=== PATIENT | female | born 1990 | race African-American/Black ===

== ENCOUNTER 2020-12-10 13:53 | Emergency (ER) | payer OTHER ==
[~2020-12-10] VITALS: Ht 157.5 cm; Wt 81.8 kg
[2020-12-10] MEDS ORDERED: IV NORMAL SALINE 1000ML BAG 1,000 ML IV ONE (14:30)
[2020-12-10 14:39] LABS: BILIRUBIN,URINE NEGATIVE (NEG); CLARITY,URINE CLEAR; COLOR,URINE YELLOW; NITRITE,URINE NEGATIVE (NEG); PH,URINE 6.5 (<5.0-8.0); PROTEIN,URINE NEGATIVE (NEG-TRACE); UROBILINOGEN,URINE 0.2 mg/dL (0.2 mg/dL)
[2020-12-10 15:02] LABS: BACTERIA,URINE FEW /HPF (0-FEW)
--- NOTE | 2020-12-10 15:02 | PHYS DOC ---
Past Medical History Past Medical History: No Pertinent History, Asthma Past Surgical History: Smoking Status: Never Smoker Alcohol Use: None Drug Use: None General Adult EDM: Chief Complaint: ABDOMINAL PAIN IN HPI: HPI: Patient is a 30 year old female who presented to ER for evaluation miscarry. Patient has been three times, had one live child. Her last menstrual period was on October 10, 2020. On November 10, 2020, patient has some pelvic pain and vaginal bleeding, patient went to [facility] ER, she was diagnosed with , but they did not see heart tone, suspected of demise. Patient was then evaluated at [facility], was seen in the [facility] diagnosed with demise on November 27, 2020. Patient was given a dose of MIFEPRISTONE IN THE CLINIC AND then she was discharged home with a prescription of this medication to take at home so she can have a complete miscarry at home. Patient says she has been passing blood clot but she was not sure if she passed the fetus. She came in today, wanted to have a pelvic ultrasound to make sure she had no retention of productive conception. Patient denies any fever, no pelvic pain, no vaginal bleeding. Patient denies any abdominal pain. Review of Systems: Review of Systems: Constitutional: Denies fever or chills. [] Eyes: Denies change in visual acuity. [] HENT: Denies nasal congestion or sore throat. [] Respiratory: Denies cough or shortness of breath. [] Cardiovascular: Denies chest pain or edema. [] GI: Denies abdominal pain, nausea, vomiting, bloody stools or diarrhea. [] : Denies dysuria. [] Musculoskeletal: Denies back pain or joint pain. [] Integument: Denies rash. [] Neurologic: Denies headache, focal weakness or sensory changes. [] Endocrine: Denies polyuria or polydipsia. [] Lymphatic: Denies swollen glands. [] Psychiatric: Denies depression or anxiety. [] Heart Score: Risk Factors: Risk Factors: DM, Current or recent (<one month) smoker, HTN, HLP, family history of CAD, obesity. Risk Scores: Score 0 - 3: 2.5% MACE over next 6 weeks - Discharge Home Score 4 - 6: 20.3% MACE over next 6 weeks - Admit for Clinical Observation Score 7 - 10: 72.7% MACE over next 6 weeks - Early Invasive Strategies Current Medications: Current Medications Medications (Trade) Dose Ordered Sig/Rubio Start Time Stop Time Status Last Admin Dose Admin Sodium Chloride 1,000 ml @ 1,000 mls/hr 1X ONCE 12/10/20 14:30 12/10/20 15:29 Allergies: Allergies: Allergies Coded Allergies Type Severity Reaction Last Updated Verified No Known Drug Allergies 08/03/15 No Physical Exam: PE: Constitutional: Well developed, well nourished, no acute distress, non-toxic appearance. [] HENT: Normocephalic, atraumatic, bilateral external ears normal, oropharynx moist, no oral exudates, nose normal. [] Eyes: PERRLA, EOMI, conjunctiva normal, no discharge. [] Neck: Normal range of motion, no tenderness, supple, no stridor. [] Cardiovascular:Heart rate regular rhythm, no murmur [] Lungs & Thorax: Bilateral breath sounds clear to auscultation [] Abdomen: Bowel sounds normal, soft, no tenderness, no masses, no pulsatile masses. [] Skin: Warm, dry, no erythema, no rash. [] Back: No tenderness, no CVA tenderness. [] Extremities: No tenderness, no cyanosis, no clubbing, ROM intact, no edema. [] Neurologic: Alert and oriented X 3, normal motor function, normal sensory function, no focal deficits noted. [] Psychologic: Affect normal, judgement normal, mood normal. [] Current Patient Data: Labs: Laboratory Tests Test 12/10/20 14:07 POC Urine HCG, Qualitative Hcg negative (Negative) Vital Signs: Vital Signs Date Time Temp Pulse Resp B/P (MAP) Pulse Ox O2 Delivery O2 Flow Rate FiO2 12/10/20 14:13 98.1 67 16 144/92 (109) 100 Room Air 98.1 EKG: EKG: [] Radiology/Procedures: Radiology/Procedures: [][facility] [address] [place], [place] [id number] IMAGING REPORT Signed PATIENT: ROBERT COLIN ACCOUNT: [id number] : 1990 LOCATION: ER AGE: 30 SEX: F EXAM STATUS: REG ER ORD. PHYSICIAN: BRIANNA SALGUERO DO REASON: about 3 months , DEMISE ON 11/10/20, TOOK MIFEPRISTONE PROCEDURE: PELVIS COMPLETE Ultrasound pelvis complete HISTORY: Miscarriage on November 10, 2020 of a 12 week fetus presents with pelvic pain Sonographic examination of the pelvis and perform by transabdominal technique multiple static images were obtained. The uterus measures 8.4 x 6.7 x 6.8 cm. The endometrium is homogeneous and measures 7 mm in thickness. The ovaries appear normal with normal blood flow. The right ovary measures 2.9 x 1.6 x 1.6 cm. The left ovary measures 3.6 x 1.9 x 2.6 cm. There is a small amount of free fluid in the cul-de-sac. Impression: Mild free fluid in the posterior cul-de-sac. No significant findings. Electronically signed by: Alicia Calero III, MD (12/10/2020 3:22 PM) [facility] DICTATED and SIGNED BY: ALICIA CALERO III, MD DATE: 12/10/20 [id number] Course & Med Decision Making: Course & Med Decision Making Pertinent Labs and Imaging studies reviewed. (See chart for details) Patient is a 30-year-old female who had a miscarriage in November 10, 2020. Pelvic ultrasound today did not show any evidence of retention of products of conception. Patient is is no acute distress, she declined lab work done. No f urther work-up needed at this time, she had a complete at home. Patti Disclaimer: Patti Disclaimer: This electronic medical record was generated, in whole or in part, using a voice recognition dictation system. Departure Departure Impression: Primary Impression: Complete Disposition: DC HOME SELF CARE/HOMELESS Condition: STABLE Referrals: NO PCP (PCP) PLEASE FOLLOW UP WITH YOUR [facility] DOCTOR THIS WEEK BRIANNA SALGUERO DO Dec 10, 2020 15:02
--- NOTE | 2020-12-10 15:25 | RAD ---
Ultrasound pelvis complete HISTORY: Miscarriage on November 10, 2020 of a 12 week fetus presents with pelvic pain Sonographic examination of the pelvis and perform by transabdominal technique multiple static images were obtained. The uterus measures 8.4 x 6.7 x 6.8 cm. The endometrium is homogeneous and measures 7 mm in thickness . The ovaries appear normal with normal blood flow. The right ovary measures 2.9 x 1.6 x 1.6 cm. The left ovary measures 3.6 x 1.9 x 2.6 cm. There is a small amount of free fluid in the cul-de-sac. Impression: Mild free fluid in the posterior cul-de-sac. No significant findings. Electronically signed by: Bhaskar Calero III, MD (12/10/2020 3:22 PM) [facility]
[2020-12-10 15:40] VITALS: BP 136/86
== END 2020-12-10 15:40 | disposition home or self-care (01) ==
LOC: ER 13:53
DX: O03.9 Complete or unspecified spontaneous abortion without complication (principal); R10.2 Pelvic and perineal pain; J45.909 Unspecified asthma, uncomplicated; Z98.890 Other specified postprocedural states; Z3A.12 12 weeks gestation of pregnancy
CPT/HCPCS: 76856; 81001; 81025; 87086; 99284

== ENCOUNTER 2021-02-12 15:50 | Emergency (ER) | payer OTHER ==
[~2021-02-12] VITALS: Ht 157.5 cm; Wt 80.0 kg
[2021-02-12 17:13] VITALS: BP 119/66
[2021-02-12] MEDS ORDERED: VENTOLIN HFA18 GM INH (17:47)
--- NOTE | 2021-02-12 17:48 | ED.ADGEN ---
Past Medical History Past Medical History: No Pertinent History, Asthma Additional Past Medical Histor: Seasonal allergies Past Surgical History: Smoking Status: Never Smoker Alcohol Use: None Drug Use: None General Adult EDM: Chief Complaint: ASTHMA HPI: HPI: Patient is a 30 year old AA female who presents emergency department with request for refill of her albuterol inhaler. Patient reports that she used the last dose of her inhaler earlier today. She currently denies any shortness of breath, or wheezing. Patient denies any fever, body aches, chest pain, wheezing, shortness of breath, ear pain, head pain, abdominal pain, nausea, vomiting, diarrhea, dysuria, or rash. She states that she has had some runny nose with postnasal drainage and nonproductive cough that she relates to her seasonal allergies. She currently denies any pain or complaints. Review of Systems: Review of Systems: Complete ROS is negative unless otherwise noted in HPI. Allergies: Allergies: Allergies Coded Allergies Type Severity Reaction Last Updated Verified No Known Drug Allergies 08/03/15 No Physical Exam: PE: See Above Constitutional: Well developed, well nourished, no acute distress, non-toxic appearance. [] HENT: Normocephalic, atraumatic, bilateral external ears normal, nose congested bilateral Eyes: PERRLA, EOMI, conjunctiva normal, no discharge. [] Neck: Normal range of motion, no stridor. [] Cardiovascular:Heart rate regular rhythm Lungs & Thorax: Respirations even and unlabored, no retractions, no respiratory distress, no wheezing Skin: Warm, dry, no erythema, no rash. [] Extremities: No cyanosis, ROM intact, no edema. [] Neurologic: Alert and oriented X 3, no focal deficits noted. [] Psychologic: Affect normal, judgement normal, mood normal. [] Current Patient Data: Vital Signs: Vital Signs Date Time Temp Pulse Resp B/P (MAP) Pulse Ox O2 Delivery O2 Flow Rate FiO2 02/12/21 17:13 98.1 94 119/66 (83) 100 98.1 02/12/21 16:22 20 Room Air EKG: EKG: [] Heart Score: C/O Chest Pain: No Risk Scores: Score 0 - 3: 2.5% MACE over next 6 weeks - Discharge Home Score 4 - 6: 20.3% MACE over next 6 weeks - Admit for Clinical Observation Score 7 - 10: 72.7% MACE over next 6 weeks - Early Invasive Strategies Radiology/Procedures: Radiology/Procedures: [] Course & Med Decision Making: Course & Med Decision Making Pertinent Labs and Imaging studies reviewed. (See chart for details) [] Patti Disclaimer: Patti Disclaimer: This electronic medical record was generated, in whole or in part, using a voice recognition dictation system. Departure Departure Impression: Primary Impression: Medication refill Disposition: 01 DC HOME SELF CARE/HOMELESS Condition: STABLE Referrals: NO PCP (PCP) Patient Instructions: Medication Refill, Emergency Department Additional Instructions: Fill the prescription(s) and use as directed. Recommend that you take 10 mg of generic Zyrtec (cetirizine) or Claritin at bedtime and use over the counter Flonase (fluticasone) nasal spray 2 sprays each nostril once daily in the [facility]. You may take Tylenol or ibuprofen as needed for pain/fever. Increase clear fluids. Avoid triggers such as smoke, fragrance, dust, and pollen. Follow- up with your primary care doctor if symptoms persist, return to the ER if symptoms worsen. Scripts Albuterol Sulfate (VENTOLIN HFA INHALER) 18 Gm Hfa.aer.ad 2 PUFF INH Q4HRS PRN for WHEEZING for 30 Days, #1 INHALER 1 Refill Prov: NEELA FAY APRN 02/12/21 NEELA FAY APRN Feb 12, 2021 17:48
== END 2021-02-12 17:58 | disposition home or self-care (01) ==
LOC: ER 15:50
DX: R09.89 Other specified symptoms and signs involving the circulatory and respiratory systems (principal); R05 Cough; J45.909 Unspecified asthma, uncomplicated; Z98.890 Other specified postprocedural states
CPT/HCPCS: 99281; 99283

== ENCOUNTER 2021-06-28 23:20 | Emergency (ER) | payer OTHER ==
[~2021-06-28] VITALS: Ht 157.5 cm; Wt 77.3 kg
[~2021-06-28 23:20] MED LIST: VENTOLIN HFA18 GM INH
[2021-06-29] MEDS ORDERED: ACETAMINOPHEN 325 MG TABLET. PO ONE
[2021-06-29] MEDS ORDERED: ACET325T9 PO (00:17)
[2021-06-29] MEDS ORDERED: ALBU2.5V8 IH (00:17)
--- NOTE | 2021-06-29 00:21 | PHYS DOC ---
Past Medical History Past Medical History: No Pertinent History, Asthma Additional Past Medical Histor: Seasonal allergies, pre-eclampsia Past Surgical History: Smoking Status: Current Some Day Smoker Alcohol Use: None Drug Use: None General Adult EDM: Chief Complaint: MULTIPLE COMPLAINTS HPI: HPI: Patient is a 31 year old male who states she is 3 to 4 weeks presents with a chief complaint of cough. Patient states symptoms been ongoing for 3 days. She has a cough with some sputum production. Patient states her sinus and chest feels congested. Patient states her entire family and kids have all tested positive for Covid. Patient household is not COVID vaccinated. On arrival patient is in no acute respiratory distress. Her oxygen saturation is 100% on room air. Patient is febrile. She denies any pelvic discomfort she denies any vaginal bleeding or discharge. Review of Systems: Review of Systems: Constitutional: Denies fever or chills. [] Eyes: Denies change in visual acuity. [] HENT: Denies nasal congestion or sore throat. [] Respiratory: Positive cough Positive shortness of breath. [] Cardiovascular: Denies chest pain or edema. [] GI: Denies abdominal pain, nausea, vomiting, bloody stools or diarrhea. [] : Denies dysuria. [] Musculoskeletal: Denies back pain or joint pain. [] Integument: Denies rash. [] Neurologic: Denies headache, focal weakness or sensory changes. [] Endocrine: Denies polyuria or polydipsia. [] Lymphatic: Denies swollen glands. [] Psychiatric: Denies depression or anxiety. [] Heart Score: C/O Chest Pain: N/A Risk Factors: Risk Factors: DM, Current or recent (<one month) smoker, HTN, HLP, family history of CAD, obesity. Risk Scores: Score 0 - 3: 2.5% MACE over next 6 weeks - Discharge Home Score 4 - 6: 20.3% MACE over next 6 weeks - Admit for Clinical Observation Score 7 - 10: 72.7% MACE over next 6 weeks - Early Invasive Strategies Current Medications: Current Medications Medications (Trade) Dose Ordered Sig/Rubio Start Time Stop Time Status Last Admin Dose Admin Acetaminophen (Tylenol) 650 mg 1X ONCE 06/29/21 00:00 06/29/21 00:01 DC 06/28/21 23:54 650 MG Allergies: Allergies: Allergies Coded Allergies Type Severity Reaction Last Updated Verified No Known Drug Allergies 08/03/15 No Physical Exam: PE: Constitutional: Well developed, well nourished, no acute distress, non-toxic appearance. [] HENT: Normocephalic, atraumatic, bilateral external ears normal, oropharynx moist, no oral exudates, nose normal. [] Eyes: PERRLA, EOMI, conjunctiva normal, no discharge. [] Neck: Normal range of motion, no tenderness, supple, no stridor. [] Cardiovascular:Heart rate regular rhythm, no murmur [] Lungs & Thorax: Bilateral breath sounds clear to auscultation [] Abdomen: Bowel sounds normal, soft, no tenderness, no masses, no pulsatile masses. [] Skin: Warm, dry, no erythema, no rash. [] Back: No tenderness, no CVA tenderness. [] Extremities: No tenderness, no cyanosis, no clubbing, ROM intact, no edema. [] Neurologic: Alert and oriented X 3, normal motor function, normal sensory function, no focal deficits noted. [] Psychologic: Affect normal, judgement normal, mood normal. [] Current Patient Data: Vital Signs: Vital Signs Date Time Temp Pulse Resp B/P (MAP) Pulse Ox O2 Delivery O2 Flow Rate FiO2 06/28/21 23:28 101.8 96 24 114/76 (83) 99 Room Air 101.8 EKG: EKG: [] Radiology/Procedures: Radiology/Procedures: [] Course & Med Decision Making: Course & Med Decision Making Pertinent Labs and Imaging studies reviewed. (See chart for details) [] Ordered Covid test patient declined. I suspect patient is Covid positive due to exposures. Patient oxygen saturation within normal limits. Patient was febrile she was treated with Tylenol. We will discharge patient home with prescription Tylenol per patient request. I will also refill patient's albuterol. Encouraged patient to increase p.o. fluids Patient to quarantine at home x14 days heart tones obtained heart rate 180'S Bedside US- movement noted + heart rate Patti Disclaimer: Patti Disclaimer: This electronic medical record was generated, in whole or in part, using a voice recognition dictation system. Departure Departure Impression: Primary Impression: COVID-19 Disposition: 01 HOME / SELF CARE / HOMELESS Condition: STABLE Referrals: NO PCP (PCP) Patient Instructions: Viral Syndrome Scripts Albuterol Sulfate (PROAIR HFA INHALER) 8.5 Gm Hfa.aer.ad 2 PUFF IH PRN Q4-6HRS PRN for wheezing for 21 Days, #1 INHALER 0 Refills Prov: KAI FLORES DO 06/29/21 Acetaminophen (TYLENOL) 325 Mg Tablet 1-2 TAB PO QID, #60 TAB 2 Refills Prov: KAI FLORES DO 06/29/21 KAI FLORES DO Jun 29, 2021 00:21
[2021-06-29 00:56] VITALS: BP 117/60
== END 2021-06-29 01:03 | disposition home or self-care (01) ==
LOC: ER 23:20
DX: U07.1 COVID-19 (principal); J45.909 Unspecified asthma, uncomplicated; F17.200 Nicotine dependence, unspecified, uncomplicated
CPT/HCPCS: 99283